=== PATIENT | male | born 1950 | race Caucasian/White ===

== ENCOUNTER 2018-11-26 07:16 | Emergency (ER) | payer MEDICARE, BC ==
[2018-11-26] MEDS ORDERED: Aspirin 81 MG Tab.Chew ONE (07:18)
[2018-11-26] MEDS ORDERED: Aspirin 81 MG Tab.Chew PO ONE (07:18)
[2018-11-26] MEDS ORDERED: Diltiazem 25 MG/5 ML SDV IVPUSH ONE (07:28)
[2018-11-26] MEDS ORDERED: Metoprolol Tartrate 5 MG/5 ML SDV IVPUSH ONE (07:44)
--- NOTE | 2018-11-26 07:52 | EDM.PDOC ---
ED HPI GENERAL MEDICAL PROBLEM - General Chief Complaint: Chest Pain Stated Complaint: HEART ISSUES Time Seen by Provider: 11/26/18 07:25 Source of Information: Reports: Patient, Family History Limitations: Reports: No Limitations - History of Present Illness INITIAL COMMENTS - FREE TEXT/NARRATIVE: 67-year-old male with a known history of coronary artery disease and intermittent atrial fibrillation presents with palpitations and shortness of breath for the past 2 hours. It started fairly suddenly at 6 AM. He has no chest pain. No nausea or vomiting or diaphoresis. He admits that he missed his morning medications the last 2 days, one of which is metoprolol. No fevers or chills, no recent illness. Onset: Sudden Duration: Hour(s): (2 hours ago) Associated Symptoms: Reports: Chest Pain (Mild chest pressure, no pain), Malaise , Shortness of Breath (Main complaint is shortness of breath especially with activity). Denies: Confusion, Cough, Diaphoresis, Nausea/Vomiting, Weakness - Related Data Allergies Allergy/AdvReac Type Severity Reaction Status Date / Time No Known Allergies Allergy Verified 11/26/18 07:24 Home Meds: Home Meds Aspirin 11/26/18 [History] Lovastatin [Altoprev] 11/26/18 [History] Metoprolol Tartrate 11/26/18 [History] Tamsulosin HCl [Flomax] 11/26/18 [History] Past Medical History Cardiovascular History: Reports: VT, Stents Social & Family History - Tobacco Use Smoking Status *Q: Never Smoker ED ROS GENERAL - Review of Systems Review Of Systems: See Below Constitutional: Denies: Fever, Chills HEENT: Reports: No Symptoms Respiratory: Reports: Shortness of Breath Cardiovascular: Reports: Chest Pain GI/Abdominal: Denies: Abdominal Pain, Nausea, Vomiting : Reports: No Symptoms Skin: Reports: No Symptoms Neurological: Reports: No Symptoms ED EXAM, GENERAL - Physical Exam Exam: See Below Exam Limited By: No Limitations General Appearance: Alert, No Apparent Distress Eye Exam: Bilateral Eye: Normal Inspection Respiratory/Chest: No Respiratory Distress, Lungs Clear Cardiovascular: Tachycardia, Irregularly Irregular GI/Abdominal: Soft, Non-Tender Extremities: Normal Inspection. No: Pedal Edema Neurological: Alert, Oriented Psychiatric: Normal Affect, Normal Mood Skin Exam: Warm, Dry EKG INTERPRETATION EKG Date: 11/26/18 Time: 07:15 Rhythm: A-Fib Rate (Beats/Min): 148 Course - Vital Signs Last Recorded V/S: Last Vital Signs Temp 97.0 F 11/26/18 07:35 Pulse 94 11/26/18 08:34 Resp 14 11/26/18 08:34 BP 129/80 11/26/18 08:34 Pulse Ox 94 L 11/26/18 08:34 - Orders/Labs/Meds Orders: Active Orders 24 hr Category Date Time Status EKG Documentation Completion [RC] ASDIRECTED Care 11/26/18 07:18 Active EKG 12 Lead [EK] Stat Ther 11/26/18 07:18 Ordered Labs: Laboratory Tests 11/26/18 11/26/18 Range/Units 07:30 07:30 WBC 5.7 (4.5-11.0) K/uL RBC 5.03 (4.30-5.90) M/uL Hgb 14.7 (12.0-15.0) g/dL Hct 45.0 (40.0-54.0) % MCV 90 (80-98) fL MCH 29 (27-31) pg MCHC 33 (32-36) % Plt Count 183 (150-400) K/uL Neut % (Auto) 65 (36-66) % Lymph % (Auto) 21 L (24-44) % [place] % (Auto) 11 H (2-6) % Eos % (Auto) 3 (2-4) % Baso % (Auto) 1 (0-1) % Sodium 144 (140-148) mmol/L Potassium 3.6 (3.6-5.2) mmol/L Chloride 108 (100-108) mmol/L Carbon Dioxide 25 (21-32) mmol/L Anion Gap 11.2 (5.0-14.0) mmol/L BUN 17 (7-18) mg/dL Creatinine 0.9 (0.8-1.3) mg/dL Est Cr Clr Drug Dosing 97.78 mL/min Estimated GFR (MDRD) > 60 (>60) Glucose 105 (74-106) mg/dL Calcium 9.3 (8.5-10.1) mg/dL Troponin I < 0.017 (0.000-0.056) ng/mL Meds: Medications Discontinued Medications Generic Name Dose Route Start Last Admin Trade Name Freq PRN Reason Stop Dose Admin Aspirin 324 mg 11/26/18 07:18 11/26/18 07:25 Aspirin PO 11/26/18 07:19 324 mg ONETIME ONE Administration Diltiazem HCl 20 mg 11/26/18 07:28 11/26/18 07:36 Diltiazem IVPUSH 11/26/18 07:29 20 mg ONETIME ONE Administration Metoprolol Tartrate 5 mg 11/26/18 07:44 11/26/18 07:54 Lopressor IVPUSH 11/26/18 07:45 5 mg ONETIME ONE Administration Propofol Confirm 11/26/18 08:02 Diprivan 20 Ml Administered 11/26/18 08:03 Dose 200 mg .ROUTE .[facility] ONE - Re-Assessments/Exams Free Text/Narrative Re-Assessment/Exam: 11/26/18 07:51 Patient was in atrial fibrillation with rapid ventricular rate, there were periods where he converted to an atrial flutter with a rate of 140 but the majority of time he was in atrial fibrillation. Initially 20 mg of IV Cardizem was given which slowed his rate to 120 but did not control the rate sufficiently. He was then given 5 mg of IV metoprolol. Anesthesia was consulted to assess for elective cardioversion. CBC BMP and troponin were obtained on arrival to the hospital, he was also given 324 mg of oral aspirin. 11/26/18 08:21 O2 therapy was provided, patient was given 30 mg of IV propofol as an anxiolytic , full conscious sedation was not a good option because of his recent food and milk intake. 200 J of synchronized cardioversion was applied and the patient converted nicely. This was done after consent. 11/26/18 09:08 All labs were normal, troponin 0. Patient recovered to his baseline status without symptoms and was discharged Departure - Departure Time of Disposition: 08:44 Disposition: Home, Self-Care 01 Clinical Impression: Atrial fibrillation with RVR Instructions: Atrial Fibrillation, [id number] Referrals: PCP,None [Primary Care Provider] - Forms: ED Department Discharge Care Plan Goals: Resume activity as tolerated, and take 50 mg of metoprolol daily. Return anytime if symptoms recur and are persistent. Keep fishing. - My Orders Last 24 Hours: My Active Orders 11/26/18 07:18 EKG Documentation Completion [RC] ASDIRECTED EKG 12 Lead [EK] Stat - Assessment/Plan Last 24 Hours: My Active Orders 11/26/18 07:18 EKG Documentation Completion [RC] ASDIRECTED EKG 12 Lead [EK] Stat
[2018-11-26] MEDS ORDERED: Propofol 200 MG/20 ML SDV ONE (08:02)
--- NOTE | 2018-11-26 18:46 | ANES ---
DATE OF SERVICE: 11/26/2018 INDICATION: A 67-year-old gentleman in the emergency room, in the need of a cardioversion. I was asked by Dr. Mancuso to provide the anesthesia sedation for this. This gentleman has had cardioversions in the past, I believe in [place]. He is from [place]. The procedure was explained to him in detail. All questions were answered. He consented to the procedure. Of note, he had 2 cupcakes, a cup of coffee, and a large glass of milk approximately 2 hours ago. It was then explained that I would like to wait another hour for a full dose. He said that he would consent to having this done without any sedation. Therefore, a compromise was made, and I was very happy to provide 40 mg of Diprivan, which will not put him all the way out, but will certainly provide a level of sedation to do this with. That was acceptable to the patient and acceptable to Dr. Mancuso. TECHNIQUE: He was hooked up to oxygen monitoring as normal. Blood pressure was 138/80. SaO2 was 100%. He was given 40 mg of Diprivan intravenously and when he stated that "I am really getting dizzy," he was cardioverted x1 successfully and returned to normal sinus rhythm. He was talking to us throughout this and at the end, when I put his glasses back on and told him we were done, he did not even know that we had done the cardioversion. He tolerated the procedure well. Landon Fung CRNA /[id number]
== END 2018-11-26 08:45 | disposition home or self-care (01) ==
LOC: JP.ED 07:16
DX: I48.2 Chronic atrial fibrillation (principal); Z79.82 Long term (current) use of aspirin; Z79.899 Other long term (current) drug therapy
CPT/HCPCS: 36415; 80048; 84484; 85025; 93005; 96374; 96375; 99284; A9270; J2704; J3490; 93010; 99285